=== PATIENT | female | born 1945 | race American Indian/Alaskan Native ===

== ENCOUNTER 2018-11-04 17:41 | Emergency (ER) | payer MEDICARE ==
[2018-11-04 17:54] VITALS: BP 163/64
--- NOTE | 2018-11-04 19:56 | XRay Report ---
FINAL REPORT EXAM: XR CHEST ROUTINE 2V HISTORY: SOB, pain to left shoulder area, lung CA TECHNIQUE: Chest two views PRIORS: Correlated with prior CT chest of August 18, 2017 FINDINGS: There is right chest port present unchanged from prior exam. Areas of focal streaky opacity within th e left upper lobe and right perihilar distribution are noted. Surgical clips overlie anterior left he mi thorax. Cardiac and mediastinal contours are unremarkable No pleural effusion identified. Pulmonary vasculature is unremarkable. IMPRESSION: Right perihilar and left upper lobe opacities as noted above. These are nonspecific may reflect areas of scar, residual tumor or infiltrate. Continued followup recommended.
--- NOTE | 2018-11-04 21:12 | Emergency Department Report ---
ED General Adult HPI - General Chief complaint: Back Pain/Injury Stated complaint: LEFT SIDE PAIN Time Seen by Provider: 11/04/18 20:39 Source: patient, family, RN notes reviewed, old records reviewed Mode of arrival: Ambulatory Limitations: No Limitations - History of Present Illness Initial comments: Primary care DrFang:Dr. Farooq Oncology: Dr. Canchola This is a 73-year-old female. The patient has a history of cancer, and is currently receiving keytruda the patient presents to the ER with a complaint of nontraumatic left sided posterior thoracic and periscapular pain, present for one month. Pain is aching and sharp, increases with palpation, and decreases with rest. The patient has chronic shortness of breath which she indicates is not a new, worsening or different. The patient reports taking ibuprofen at home for pain. She reports 1 month of central chest tightness, which does not have exacerbating or infectious. She denies vomiting, diaphoresis, urinary tract symptoms, leg pain, leg swelling. She reports she presented to the emergency room today because her pain got worse. To me, the patient makes no complaints specifically of new or different shortness of breath, but a triage nurse documentation, shortness of breath was an articulate interest complaint. -: Gradual, week(s) Location: back Radiation: non-radiation Quality: aching Consistency: constant Improves with: rest Worsens with: movement Associated Symptoms: shortness of breath. denies: confusion, chest pain, cough, diaphoresis, fever/chills, headaches, loss of appetite, malaise, nausea/vomiting, rash, seizure, syncope, weakness - Related Data Previous Rx's Medication Instructions Recorded Last Taken Type Aspirin EC [Aspirin Enteric Coated 81 mg PO QDAY #30 tablet. 08/22/17 Unknown Rx TAB] AtorvaSTATin [Lipitor] 20 mg PO QHS #30 tablet 08/22/17 Unknown Rx Metformin HCl 500 mg PO BID #60 tablet 08/22/17 Unknown Rx Metoprolol Tartrate 100 mg PO BID #60 tablet 08/22/17 Unknown Rx Valsartan/Hydrochlorothiazide 1 each PO DAILY #30 tablet 08/22/17 Unknown Rx [Valsartan-Hctz 160-12.5 mg Tab] levoFLOXacin [Levaquin TAB] 500 mg PO Q24HR #5 tablet 08/22/17 Unknown Rx Allergies Allergy/AdvReac Type Severity Reaction Status Date / Time codeine Allergy Unknown Verified 08/18/17 18:34 Sulfa (Sulfonamide Allergy Unknown Verified 08/18/17 18:34 Antibiotics) ED Review of Systems ROS: Stated complaint: LEFT SIDE PAIN Other details as noted in HPI Constitutional: denies: fever, malaise Eyes: denies: eye discharge ENT: denies: congestion Respiratory: denies: cough Cardiovascular: other. denies: chest pain Gastrointestinal: denies: abdominal pain, nausea, vomiting Genitourinary: denies: dysuria Musculoskeletal: back pain Skin: denies: lesions ED Past Medical Hx - Past Medical History Hx Hypertension: Yes Hx Diabetes: Yes Additional medical history: left breast CA-2004 with lumpectomy. Lung CA - Surgical History Past Surgical History?: Yes Additional Surgical History: hysterectomy,Left forearm laceration,left knee replacement - Social History Smoking Status: Former Smoker Substance Use Type: None - Medications Home Medications: Home Medications Medication Instructions Recorded Confirmed Last Taken Type Aspirin EC [Aspirin Enteric Coated 81 mg PO QDAY #30 tablet. 08/22/17 Unknown Rx TAB] AtorvaSTATin [Lipitor] 20 mg PO QHS #30 tablet 08/22/17 Unknown Rx Metformin HCl 500 mg PO BID #60 tablet 08/22/17 Unknown Rx Metoprolol Tartrate 100 mg PO BID #60 tablet 08/22/17 Unknown Rx Valsartan/Hydrochlorothiazide 1 each PO DAILY #30 tablet 08/22/17 Unknown Rx [Valsartan-Hctz 160-12.5 mg Tab] levoFLOXacin [Levaquin TAB] 500 mg PO Q24HR #5 tablet 08/22/17 Unknown Rx ED Physical Exam - General Limitations: No Limitations General appearance: alert, in no apparent distress - Head Head exam: Present: atraumatic, normocephalic - Eye Eye exam: Present: normal appearance, EOMI. Absent: nystagmus - ENT ENT exam: Present: normal exam, normal orophraynx, mucous membranes moist, normal external ear exam - Neck Neck exam: Present: normal inspection, full ROM. Absent: tenderness, meningismus - Respiratory Respiratory exam: Present: decreased breath sounds. Absent: respiratory distress, wheezes, rales, rhonchi, stridor, chest wall tenderness - Cardiovascular Cardiovascular Exam: Present: regular rate, normal rhythm, normal heart sounds. Absent: bradycardia, tachycardia, irregular rhythm, systolic murmur, diastolic murmur, rubs, gallop - GI/Abdominal GI/Abdominal exam: Present: soft. Absent: distended, tenderness, guarding, rebound, rigid, pulsatile mass - Extremities Exam Extremities exam: Present: normal inspection, pedal edema, other (2+ pulses noted in the bilateral upper extremities. There is no long bony tenderness. The compartments are soft.). Absent: calf tenderness (there is no palpable cord. There is a negative Homans sign.) - Back Exam Back exam: Present: normal inspection, full ROM, paraspinal tenderness (there is left sided reproducible parascapular tenderness, with no redness, pus or streaking.). Absent: tenderness, CVA tenderness (R), vertebral tenderness - Neurological Exam Neurological exam: Present: alert, oriented X3, other (Extraocular movements intact. Tongue midline. No facial droop. Facial sensation intact to light touch in the V1, V2, V3 distribution bilaterally. 5 and 5 strength in 4 extremities.. Sensation is intact to light touch in 4 extremities.). Absent: motor sensory deficit - Psychiatric Psychiatric exam: Present: normal affect, normal mood - Skin Skin exam: Present: warm, dry, intact, normal color. Absent: rash ED Course Vital Signs 11/04/18 17:51 Temperature 98.0 F Pulse Rate 74 Respiratory 18 Rate Blood Pressure 163/64 O2 Sat by Pulse 97 Oximetry ED Medical Decision Making - Lab Data Vital Signs 11/04/18 17:51 Temperature 98.0 F Pulse Rate 74 Respiratory 18 Rate Blood Pressure 163/64 O2 Sat by Pulse 97 Oximetry - Radiology Data Radiology results: report reviewed, image reviewed X-ray of the chest demonstrates right perihilar and left upper lobe opacities, nonspecific, may indicate areas of scar tissue, residual tumor, or infiltrate. - Medical Decision Making Differential diagnosis, including not limited to: Musculoskeletal pain, cancer pain, pneumonia, malignancy, pulmonary embolus Assessment and plan: 73-year-old female with a history of lung cancer, with left-sided posterior scapular pain, reported shortness of breath, not articulated to this provider, and on review of systems, and/or since of chest tightness for one month. The patient is afebrile with reassuring vital signs, and on my initial evaluation, is planning on the side of the phone, and in no acute distress. Based off of her history, physical, and past medical history, I recommended screening laboratory studies, EKG, pain medication as necessary, and CT scan of the chest to exclude pneumonia, pneumothorax, pulmonary embolus. The patient declined these interventions. The patient is going to sign out AGAINST MEDICAL ADVICE. The patient is alert and oriented 3, exhibits decision-making capacity. The risks of an incomplete workup, including undiagnosed pulmonary embolus, pneumonia, or worsening cancer burden were described to the patient and family, who verbalized understanding. The patient exhibits decision-making capacity, and she is free from distracting injury. She left the hospital in emergency room prior to receiving her paperwork. The patient was also seen and interviewed by my colleague, nurse Kari Delcid, who also independently interviewed and counseled the patient to remain in the emergency department, and complete her workup. The patient's family also called the patient's covering oncologist, Dr. Up, who reported to me that she also counseled the family and patient complete the workup. Before leaving the emergency room, I specifically informed the patient that the emergency room is open 24 hours a day, 7 days a week, never closes, and that she should follow-up with her oncologist as soon as possible, or return to emergency room as soon as possible if and when she changes her mind. Critical care attestation.: If time is entered above; I have spent that time in minutes in the direct care of this critically ill patient, excluding procedure time. ED Disposition Clinical Impression: Left shoulder pain Disposition: DC-07 LEFT AGAINST MED ADVICE Is pt being admited?: No Does the pt Need Aspirin: No Condition: Undetermined Referrals: PRIMARY CARE, [Primary Care Provider] - 3-5 Days Forms: AMA Form
== END 2018-11-04 21:05 | disposition left against medical advice (07) ==
LOC: ED 17:41
DX: R06.02 Shortness of breath (principal); M25.512 Pain in left shoulder; I10 Essential (primary) hypertension; E11.9 Type 2 diabetes mellitus without complications; Z90.710 Acquired absence of both cervix and uterus; Z96.652 Presence of left artificial knee joint; Z87.891 Personal history of nicotine dependence; Z79.82 Long term (current) use of aspirin; Z88.6 Allergy status to analgesic agent; Z88.2 Allergy status to sulfonamides
CPT/HCPCS: 71046; 93005; 93010; 99283

== ENCOUNTER 2019-05-21 10:51 | Outpatient (CLI) | payer MEDICARE ==
--- NOTE | 2019-05-24 09:55 | Mammography Report ---
BILATERAL DIGITAL SCREENING MAMMOGRAM WITH CAD INDICATION: Routine screening mammography. TECHNIQUE: Digital bilateral 2D mammography was obtained in the craniocaudal and mediolateral obliq ue projections. This examination was interpreted with the benefit of Computer-Aided Detection analysi s. COMPARISON: None available. She does not remember where she previously had a mammogram. FINDINGS: Breast Density: The breasts are heterogeneously dense, which may obscure small masses. No mass, architectural distortion or suspicious calcifications. The left breast is smaller than the r ight. Left upper outer surgical clips. Bilateral benign arterial calcifications. Moderate nonspecific skin thickening of both breasts. IMPRESSION:No mammographic evidence of malignancy. BI-RADS Category 2: Benign. No mammographic evidence of malignancy. Recommend routine screening ma mmography in one year. A "normal" or negative report should not discourage follow up or biopsy of a clinically significant f inding. A written summary of these findings will be mailed to the patient. The patient will be entered into a mammography reporting system which will generate a reminder letter for the patient's next appointmen t at the appropriate interval. The [employer] recommends yearly mammograms starting at age 40 and continuing as l ruby as a woman is in good health. Breast MRI is recommended for women with an approximate 20-25% or greater lifetime risk of breast cancer, including women with a strong family history of breast or ova abraham cancer or who have been treated for Hodgkin's disease. Signer Name: Flip Chino MD Signed: 05/24/2019 9:51 AM Workstation Name: [id number]
== END 2019-05-21 10:52 | disposition home or self-care (01) ==
LOC: SPVWC 10:51
PROVIDERS: ATTEND Internal Medicine
DX: Z12.31 Encounter for screening mammogram for malignant neoplasm of breast (principal); E11.9 Type 2 diabetes mellitus without complications; I10 Essential (primary) hypertension
CPT/HCPCS: 77067

== ENCOUNTER 2020-01-10 10:48 | Emergency (ER) | payer MEDICARE ==
--- NOTE | 2020-01-10 12:53 | Emergency Department Report ---
- General Chief Complaint: Upper Respiratory Infection Stated Complaint: COUGHING/WHEEZING Time Seen by Provider: 01/10/20 12:38 Source: patient Mode of arrival: Ambulatory Limitations: No Limitations - History of Present Illness Initial Comments: 74-year-old female presents to ED with URI symptoms x1 year. Patient reports cough, sneezing, nasal congestion x1 year. Patient states his sneezing became worse 2 weeks ago, so she decided to come to the ER today. She denies shortness of breath or fever. She denies any recent travel or exposure to any patient who is known to be COVID positive. MD Complaint: cough, rhinorrhea, nasal congestion, other (sneezing) -: week(s) (2) Severity: mild Consistency: constant Improves With: nothing Worsens With: nothing Associated Symptoms: rhinorrhea, nasal congestion, cough. denies: fever, chills, sore throat, chest pain, shortness of breath, nausea, vomiting - Related Data Previous Rx's Medication Instructions Recorded Last Taken Type Aspirin EC [Halfprin EC] 81 mg PO QDAY #30 tablet. 08/22/17 Unknown Rx AtorvaSTATin [Lipitor] 20 mg PO QHS #30 tablet 08/22/17 Unknown Rx Metformin HCl 500 mg PO BID #60 tablet 08/22/17 Unknown Rx Metoprolol Tartrate 100 mg PO BID #60 tablet 08/22/17 Unknown Rx Valsartan/Hydrochlorothiazide 1 each PO DAILY #30 tablet 08/22/17 Unknown Rx [Valsartan-Hctz 160-12.5 mg Tab] levoFLOXacin [Levaquin TAB] 500 mg PO Q24HR #5 tablet 08/22/17 Unknown Rx Loratadine [Claritin] 10 mg PO QDAY #30 tablet 01/10/20 Unknown Rx Allergies Allergy/AdvReac Type Severity Reaction Status Date / Time codeine Allergy Unknown Verified 08/18/17 18:34 Sulfa (Sulfonamide Allergy Unknown Verified 08/18/17 18:34 Antibiotics) ED Review of Systems ROS: Stated complaint: COUGHING/WHEEZING Other details as noted in HPI Comment: All other systems reviewed and negative Constitutional: denies: chills, fever ENT: congestion, other (reports sneezing). denies: throat pain Respiratory: cough. denies: shortness of breath Gastrointestinal: denies: nausea, vomiting ED Past Medical Hx - Past Medical History Previous Medical History?: Yes Hx Hypertension: Yes Hx Diabetes: Yes Additional medical history: left breast CA-2005 with lumpectomy. Lung CA - Surgical History Past Surgical History?: Yes Additional Surgical History: hysterectomy,Left forearm laceration,left knee replacement - Social History Smoking Status: Never Smoker Substance Use Type: None - Medications Home Medications: Home Medications Medication Instructions Recorded Confirmed Last Taken Type Aspirin EC [Halfprin EC] 81 mg PO QDAY #30 tablet. 08/22/17 Unknown Rx AtorvaSTATin [Lipitor] 20 mg PO QHS #30 tablet 08/22/17 Unknown Rx Metformin HCl 500 mg PO BID #60 tablet 08/22/17 Unknown Rx Metoprolol Tartrate 100 mg PO BID #60 tablet 08/22/17 Unknown Rx Valsartan/Hydrochlorothiazide 1 each PO DAILY #30 tablet 08/22/17 Unknown Rx [Valsartan-Hctz 160-12.5 mg Tab] levoFLOXacin [Levaquin TAB] 500 mg PO Q24HR #5 tablet 08/22/17 Unknown Rx Loratadine [Claritin] 10 mg PO QDAY #30 tablet 01/10/20 Unknown Rx ED Physical Exam - General Limitations: No Limitations General appearance: alert, in no apparent distress - Head Head exam: Present: atraumatic, normocephalic - Eye Eye exam: Present: normal appearance, EOMI - ENT ENT exam: Present: mucous membranes moist - Neck Neck exam: Present: normal inspection - Respiratory Respiratory exam: Present: normal lung sounds bilaterally. Absent: respiratory distress, wheezes - Cardiovascular Cardiovascular Exam: Present: regular rate, normal rhythm - GI/Abdominal GI/Abdominal exam: Absent: distended - Extremities Exam Extremities exam: Present: normal inspection - Neurological Exam Neurological exam: Present: alert, oriented X3 - Psychiatric Psychiatric exam: Present: normal affect, normal mood - Skin Skin exam: Present: warm, dry, intact, normal color ED Course Vital Signs 01/10/20 01/10/20 01/10/20 11:27 12:33 13:10 Temperature 97.9 F Pulse Rate 70 68 Respiratory 18 17 20 Rate Blood Pressure 118/66 Blood Pressure 130/70 [Right] O2 Sat by Pulse 97 100 98 Oximetry 01/10/20 13:18 Temperature Pulse Rate Respiratory 18 Rate Blood Pressure Blood Pressure [Right] O2 Sat by Pulse 100 Oximetry ED Medical Decision Making - Medical Decision Making - pt reports sneezing, nasal congestion, cough - vitals nml, pt afebrile, O2 sats normal, no resp distress, lungs clear - pt reports sx's for 1 year, but worsening sneezing x 2 weeks - possibly allergies - outpt f/u advised - return precautions given - Differential Diagnosis allergic rhinitis, viral illness Critical care attestation.: If time is entered above; I have spent that time in minutes in the direct care of this critically ill patient, excluding procedure time. ED Disposition Clinical Impression: Allergic rhinitis Disposition: DC-01 TO HOME OR SELFCARE Is pt being admited?: No Condition: Stable Instructions: Allergic Rhinitis (ED) Prescriptions: Loratadine [Claritin] 10 mg PO QDAY #30 tablet Referrals: PRIMARY CARE, [Primary Care Provider] - 3-5 Days Time of Disposition: 12:52
[2020-01-10 13:11] VITALS: BP 130/70
== END 2020-01-10 13:20 | disposition home or self-care (01) ==
LOC: ED 10:48
DX: J30.9 Allergic rhinitis, unspecified (principal); I10 Essential (primary) hypertension; E11.9 Type 2 diabetes mellitus without complications; Z79.82 Long term (current) use of aspirin; Z79.899 Other long term (current) drug therapy; Z98.890 Other specified postprocedural states; Z90.710 Acquired absence of both cervix and uterus; Z88.6 Allergy status to analgesic agent; Z88.2 Allergy status to sulfonamides
CPT/HCPCS: 99282